=== PATIENT | female | born 1970 | race Caucasian/White ===

== ENCOUNTER → 2016-10-26 | Day surgery (SDC) | payer OTHER ==
[~2016-10-26] VITALS: Ht 167.6 cm; Wt 97.5 kg
[~2016-10-26] MED LIST: CAMILA0.35 M1 PO; DEXILANT60 M1 PO; LEXAPRO20 M1 PO; LISINOPRIL40 M1 PO; SINGULAIR10 M1 PO; WELLBUTRIN XL300 M2 PO
--- NOTE | 2016-10-26 09:03 | Operative Report ---
Operative/Inv Procedure Report Surgery Date: 10/26/16 Name of Procedure: Laparoscopic cholecystectomy Pre-Operative Diagnosis: Biliary colic Post-Operative Diagnosis: Same Estimated Blood Loss: scant Surgeon/Human Resources Office Manager: SAMARA GRAVES,DONNY Damon/WEI Melton Anesthesia: general endotracheal tube Specimens: Gallbladder Operative/Procedure Note Note: After informed consent patient is brought to the operating room and laid supine. General anesthesia was obtained and her abdomen was prepped and draped. The skin below the umbilicus infiltrated with local anesthesia and a curvilinear incision made sharply. We came down through the subcutaneous tissues bluntly and grasped the fascia with Reny's. A fasciotomy was created sharply and stay sutures placed. The peritoneum was entered sharply and a blunt Aaron port was placed. Pneumoperitoneum was achieved. 3, 5 mm ports were placed in the epigastrium and right upper quadrant after local anesthesia was instilled and under direct vision the camera. She's placed in reverse Trendelenburg and rotated towards the left. The gallbladder is identified. It was grasped at the dome and retracted towards the head. Infundibulum was then grasped. We dissected both sides the triangle Calot peritoneal tissue with cautery. The artery was medial and its normal anatomic position. It was cauterized medially to allow it to be mobilized away from the duct. [place] was cleared of areolar tissue with cautery. The arteries and duct were doubly ligated with clips. Gallbladder is removed from the fossa electrocautery. It was placed in Endo Catch bag and cinched up. Right upper quadrant was and suction irrigated normal saline. Hemostasis achieved with cautery. The ports were then removed and the gallbladder delivered and passed off the field. The fascia was closed with 0 Vicryl suture. Skin incisions closed with Dermabond. sterile dressing applied. Sponge and needle counts are correct. Findings: None significant CC: FRANK GRAVES,BRIAN López
== END ==
LOC: STS 04:46
DX: K80.11 Calculus of gallbladder with chronic cholecystitis with obstruction (principal); K21.9 Gastro-esophageal reflux disease without esophagitis; E66.3 Overweight
CPT/HCPCS: 88304; J0131; J0690; J1885; J2250; J2405